=== PATIENT | male | born 1985 | race Two or more races ===

== ENCOUNTER 2024-04-16 16:35 | Inpatient (IN) | payer BC, OTHER ==
[~2024-04-16] VITALS: Ht 195.6 cm; Wt 205.3 kg
[2024-04-16 20:36] VITALS: BP 101/45; PULSE 71; RESP 20; TEMP 98.6; O2SAT 99
[2024-04-16 21:00] VITALS: BP 101/45; PULSE 71; RESP 20; TEMP 98.6; O2SAT 99
[2024-04-16] MEDS ORDERED: hydrALAZINE HCL 20 MG/ML VL IV PRN (21:15)
[2024-04-16] MEDS ORDERED: MORPHINE SULFATE INJ 2 MG/ml SYRG IV PRN ×2 (21:15)
[2024-04-16] MEDS ORDERED: NITROGLYCERIN 0.4 MG SL TAB SL PRN (21:15)
[2024-04-16] MEDS ORDERED: ONDANSETRON HCL 4 MG/2 ML VIAL IV PRN (21:15)
[2024-04-16] MEDS ORDERED: ACETAMINOPHEN 325 MG TAB PO PRN (21:15)
[2024-04-16] MEDS ORDERED: TEMAZEPAM 15 MG CAP PO PRN (21:15)
[2024-04-16] MEDS ORDERED: LISI40TA16 PO (21:24)
[2024-04-16] MEDS ORDERED: AMLO-298 PO (21:24)
[2024-04-16] MEDS ORDERED: TRIAPOW43 PO (21:30)
[2024-04-16 21:42] LABS: Basophils # (auto) 0.1 10 ^3/uL (0-0.2); Basophils % (auto) 1.4 % (0.0-2.0); Eosinophils # (auto) 0.3 10 ^3/uL (0-0.8); Eosinophils % (auto) 4.7 % (0.0-7.0); Hemoglobin 13.4 g/dL (13.5-17.5); Lymphocytes # (auto) 2.7 10 ^3/uL (0.4-5.4); Lymphocytes % (auto) 42.3 % (10.0-50.0); Mean Corpuscular Hemoglobin 30.1 pg (28.0-32.0); Mean Corpuscular Hgb Conc. 33.6 g/dL (32.0-36.0); Mean Corpuscular Volume 89.5 fL (80.0-100.0); Monocytes # (auto) 0.6 10 ^3/uL (0-1.3); Monocytes % (auto) 9.3 % (0.0-12.0); Neutrophils # (auto) 2.7 10 ^3/uL (1.6-8.6); Neutrophils % (auto) 42.3 % (37.0-80.0); Nucleated Red Blood Cells % 0.1 %; Platelet Count (auto) 282 10^3/uL (140-450); Red Blood Cells 4.47 10^6/uL (4.5-5.90); Red Cell Distribution Width 13.7 % (11.8-14.3); White Blood Cell 6.4 10^3/uL (4.4-10.8)
[2024-04-16] MEDS: SODIUM CHLOR 0.9% PF (SALINE LOCK) 10ML VIAL/SYR IV SCH (22:00)
[2024-04-16] MEDS: ATORVASTATIN 20 MG TAB PO SCH (22:00)
[2024-04-16 22:11] LABS: Albumin 4.3 g/dL (3.2-4.8); Alkaline Phosphatase 83 U/L (46-116); Anion Gap 6 (5-15); Aspartate Aminotransferase 23 U/L (13-40); Blood Alcohol 4.1 mg/dL (<10); Blood Urea Nitrogen 12 mg/dL (9-23); Calcium 9.9 mg/dL (8.7-10.4); Chloride 104 mmol/L (98-107); Glucose 92 mg/dL (74-106); Magnesium 2.4 mg/dL (1.6-2.6); Potassium 3.9 mmol/L (3.5-5.1); Sodium 141 mmol/L (136-145)
[2024-04-16 22:12] LABS: Alanine Aminotransferase 50 U/L (7-40); Bilirubin, Total 0.3 mg/dL (0.2-1.0); Carbon Dioxide 31 mmol/L (20-31); Total Protein 7.6 g/dL (5.7-8.2)
--- NOTE | 2024-04-16 22:36 | DVHHPRES ---
History of Present Illness Resident Creating Document: FAUSTINO IVAN RESIDENT History of Present Illness Patient is 38 years old male with a history of atrial fibrillation, status post cardiac ablation 10 years before, hypertension, morbid obesity was transferred from [facility]. Patient went to [facility] yesterday due to rapid heartbeat. Patient reported feeling palpitation but denied any chest pain, shortness of breath, vertigo, fever, dysuria, constipation, acute joint pain or swelling. Patient was found to have atrial fibrillation and rapid ventricular rate. Patient was also found to have elevated blood pressure. Patient was treated with Cardizem for atrial fibrillation and reverted to sinus rhythm as per [facility] documentation. . Lab reviewed from [facility] negative for troponin I, WBC 6.0, hemoglobin 13.5, sodium 139, potassium 3.3, serum creatinine 1.13, D-dimer with a normal limit, troponin with a normal limit. Chest x-ray negative for acute cardiopulmonary disease. Per documentation [facility] patient was treated with Cardizem. Today today on admission at [facility] patient reported feeling well, denied any palpitation, chest pain or shortness of breath. Vitals stable. Lab workup at [facility] revealed HGB A1c 6.1, mildly elevated ALT, negative for troponin I, BNP within normal limit, TSH 1.99, serum creatinine 1.09, sodium 141, potassium 3.9. Serum alcohol 4.1. Past Medical History Hypertension, atrial fibrillation status post cardiac ablation 10 years before, morbid obesity Past Surgical History Cardiac ablation for atrial fibrillation 10 years before Past Social History Patient reported being nonsmoker, alcoholic, denies using any drugs Review of Systems Review of Systems Allergy- NKDA Patient was seen today at the bedside. Cardiovascular- deny acute chest pain or shortness of breath or cough or palpitation Respiratory- denies cough or short of breath or wheezing Gastrointestinal- denies any rectal bleeding, nausea or vomiting Musculoskeletal-denies acute joint swelling or tenderness or redness Neurological- denies acute dysarthria, dysphagia, change in vision Psychiatry- denies depression or SI or HI Skin- denies acute rash or purpura Allergies: Coded Allergies: NO KNOWN ALLERGIES (Unverified , 04/16/24) Medications Current Medications Medications Dose Ordered Sig/Bernard Route Start Time Stop Time Status Last Admin Dose Admin Sodium Chloride 10 ml Q8HR IV 04/16/24 22:00 Temazepam 15 mg QHSP PRN PO 12/13/24 21:15 Ondansetron HCl 4 mg Q4HP PRN IV 04/16/24 21:15 Acetaminophen 650 mg Q6HP PRN PO 04/16/24 21:15 Morphine Sulfate 2 mg Q4HPRN PRN IV 04/16/24 21:15 Nitroglycerin 0.4 mg Q5MINP PRN SL 04/16/24 21:15 Morphine Sulfate 2 mg Q30M PRN IV 04/16/24 21:15 Aspirin 81 mg DAILY PO 04/17/24 10:00 Atorvastatin Calcium 40 mg HS PO 04/16/24 22:00 Diltiazem HCl 180 mg DAILY PO 04/17/24 10:00 Lisinopril 40 mg DAILY PO 04/17/24 10:00 Enoxaparin Sodium 40 mg DAILY SC 04/17/24 10:00 Hydralazine HCl 10 mg Q6HP PRN IV 04/16/24 21:15 Exam Vital Signs Vital Signs Date Time Temp Pulse Resp B/P (MAP) Pulse Ox O2 Delivery O2 Flow Rate FiO2 04/16/24 20:36 71 20 99 Room Air* 0 21 04/16/24 20:36 98.6 101/45 (63) 98.6 Exam General examination- awake, alert, oriented, conversant, morbid obese HEENT- PEERLA, no acute nasal discharge Cardiovascular- S1-S2 audible, rate and rhythm regular, no murmur Respiratory- CTAB, no wheeze or rhonchi Gastrointestinal-nontender, bowel sound+. Nondistended Musculoskeletal-no acute joint swelling or tenderness or redness# Lower extremity- no leg edema Neurological- cranial nerves intact, no acute dysarthria or dysphagia Psychiatry- denies depression or SI or HI Skin- no acute rash or purpura Labs/Xrays Labs Test 04/16/24 22:22 04/16/24 21:20 Range/Units White Blood Count 6.4 4.4-10.8 10^3/uL Red Blood Count 4.47 L 4.5-5.90 10^6/uL Hemoglobin 13.4 L 13.5-17.5 g/dL Hematocrit 40.0 L 41.0-53.0 % Mean Corpuscular Volume 89.5 80.0-100.0 fL Mean Corpuscular Hemoglobin 30.1 28.0-32.0 pg Mean Corpuscular Hemoglobin Concent 33.6 32.0-36.0 g/dL Red Cell Distribution Width 13.7 11.8-14.3 % Platelet Count 282 140-450 10^3/uL Mean Platelet Volume 9.1 6.9-10.8 fL Neutrophils (%) (Auto) 42.3 37.0-80.0 % Lymphocytes (%) (Auto) 42.3 10.0-50.0 % Monocytes (%) (Auto) 9.3 0.0-12.0 % Eosinophils (%) (Auto) 4.7 0.0-7.0 % Basophils (%) (Auto) 1.4 0.0-2.0 % Neutrophils # (Auto) 2.7 1.6-8.6 10 ^3/uL Lymphocytes # (Auto) 2.7 0.4-5.4 10 ^3/uL Monocytes # (Auto) 0.6 0-1.3 10 ^3/uL Eosinophils # (Auto) 0.3 0-0.8 10 ^3/uL Basophils # (Auto) 0.1 0-0.2 10 ^3/uL Nucleated Red Blood Cells 0.1 % Sodium Level 141 136-145 mmol/L Potassium Level 3.9 3.5-5.1 mmol/L Chloride Level 104 98-107 mmol/L Carbon Dioxide Level 31 20-31 mmol/L Anion Gap 6 5-15 Blood Urea Nitrogen 12 9-23 mg/dL Creatinine 1.09 0.700-1.30 mg/dL Glomerular Filtration Rate Calc 89 >90 mL/min BUN/Creatinine Ratio 11.0 10.0-20.0 Serum Glucose 92 74-106 mg/dL Hemoglobin A1c 6.1 H <5.7 % A1C Calcium Level 9.9 8.7-10.4 mg/dL Magnesium Level 2.4 1.6-2.6 mg/dL Total Bilirubin 0.3 0.2-1.0 mg/dL Aspartate Amino Transferase (AST) 23 13-40 U/L Alanine Aminotransferase (ALT) 50 H 7-40 U/L Alkaline Phosphatase 83 46-116 U/L Total Protein 7.6 5.7-8.2 g/dL Albumin 4.3 3.2-4.8 g/dL Thyroid Stimulating Hormone (TSH) 1.99 0.55-4.78 uIU/mL Plasma/Serum Blood Alcohol 4.1 <10 mg/dL Assessment/Plan Assessment/Plan #Atrial fibrillation with rapid ventricular rate- now sinus Rhythm -status post cardiac ablation 10 years before -continue Cardizem 180 mg p.o. daily # uncontrolled hypertension, now improved -Cardizem 180 mg p.o. daily -continue lisinopril 40 mg p.o. daily -monitor BP # prediabetes, HGB A1c 6.1 -continue with nonmedical treatment # morbid obesity, BMI 53.7 -patient was counseled about weight reduction, healthy diet, physical activity Goals of care/advance care planning; FULL CODE; discussed with the patient >15 minutes PUD prophylaxis: Famotidine DVT prophylaxis: Lovenox PCP - Dr. Novak Plan discussed with Dr. Powell, nursing staff, patient Total time spent on patient evaluation, chart review, assessment and plan, discussion discussion >30 minutes Plan discussed with: Patient Plan discussed with: Patient, Other My Orders Orders - FAUSTINO IVAN RESIDENT Procedure Category Date Status Time Admit ADMIT 04/16/24 Transmitted 21:02 Code Status CODE 04/16/24 Transmitted 21:02 Sodium Chloride Lock PHA 04/16/24 In Process (Saline Lock Ns) 22:00 Temazepam (Restoril) PHA 04/16/24 In Process 21:15 Ondansetron Hcl PHA 04/16/24 In Process (Zofran) 21:15 Complete Blood Count LAB 04/17/24 Verified 04:00 Comprehensive LAB 04/17/24 Verified Metabolic Panel 04:00 Cardiac DIET 04/17/24 Transmitted Diet-2gna,Lofat,Lochol Breakfast Echo 2d Mode Cardiac US 04/16/24 Logged DOP 21:02 Acetaminophen Tablet PHA 04/16/24 In Process (Tylenol Tablet) 21:15 Morphine Sulfate PHA 04/16/24 In Process Injection 21:15 Nitroglycerin PHA 04/16/24 In Process Sublingual (Ntrostat 21:15 Morphine Sulfate PHA 04/16/24 In Process Injection 21:15 Oxygen By Nasal RT 04/16/24 Transmitted Cannula 21:02 Stat Ekg For Chest MARI 04/16/24 In Process Pain 21:02 Notify Of Changes MARI 04/16/24 In Process From Base 21:02 Agency Operator For MARI 04/16/24 In Process 24 Hours 21:02 Emergency Dysrhythmia MARI 04/16/24 In Process Protocol 21:02 Rhythm Strips Once MARI 04/16/24 In Process Every Shift 21:02 Troponin-I Hs LAB 04/16/24 In Process 22:02 Troponin-I Hs LAB 04/17/24 Verified 00:02 Electrocardigram EKG 04/16/24 Logged 21:02 Electrocardigram EKG 04/16/24 Logged 22:02 Aspirin Tablet PHA 04/17/24 In Process 10:00 Atorvastatin (Lipitor) PHA 04/16/24 In Process 22:00 Drug Screen LAB 04/16/24 Logged 21:05 Diltiazem Er Capsule PHA 04/17/24 In Process (Cardizem La Capsul 10:00 Lisinopril Tablet PHA 04/17/24 In Process (Zestril Tablet) 10:00 Enoxaparin Sodium PHA 04/17/24 In Process (Lovenox) 10:00 Hydralazine Injection PHA 04/16/24 In Process (Apresoline Inject 21:15 Date of Service: Apr 16, 2024 Billing Provider: SARAHY POWELL MD Common Visit Codes: [id number] INP/OBS CARE (HIGH) FAUSTINO IVAN RESIDENT Apr 16, 2024 22:36 SARAHY POWELL MD Apr 18, 2024 18:48
[2024-04-17 01:00] VITALS: BP 108/52; PULSE 68; RESP 20; TEMP 98.8; O2SAT 98
[2024-04-17 05:00] VITALS: BP 106/56; PULSE 70; RESP 18; TEMP 98.6; O2SAT 99
[2024-04-17 06:11] LABS: Basophils # (auto) 0.1 10 ^3/uL (0-0.2); Basophils % (auto) 0.9 % (0.0-2.0); Eosinophils # (auto) 0.3 10 ^3/uL (0-0.8); Eosinophils % (auto) 5.7 % (0.0-7.0); Hematocrit 40.3 % (41.0-53.0); Hemoglobin 13.5 g/dL (13.5-17.5); Lymphocytes # (auto) 2.1 10 ^3/uL (0.4-5.4); Lymphocytes % (auto) 37.8 % (10.0-50.0); Mean Corpuscular Hemoglobin 30.1 pg (28.0-32.0); Mean Corpuscular Hgb Conc. 33.4 g/dL (32.0-36.0); Monocytes # (auto) 0.5 10 ^3/uL (0-1.3); Neutrophils # (auto) 2.5 10 ^3/uL (1.6-8.6); Neutrophils % (auto) 45.6 % (37.0-80.0); Nucleated Red Blood Cells % 0.1 %; Platelet Count (auto) 191 10^3/uL (140-450); Red Blood Cells 4.48 10^6/uL (4.5-5.90); White Blood Cell 5.5 10^3/uL (4.4-10.8)
[2024-04-17 06:32] LABS: Albumin 4.2 g/dL (3.2-4.8); Alkaline Phosphatase 82 U/L (46-116); Anion Gap 9 (5-15); Aspartate Aminotransferase 20 U/L (13-40); BUN/Creatinine Ratio 10.1 (10.0-20.0); Blood Urea Nitrogen 11 mg/dL (9-23); Calcium 9.9 mg/dL (8.7-10.4); Carbon Dioxide 30 mmol/L (20-31); Chloride 103 mmol/L (98-107); Magnesium 2.3 mg/dL (1.6-2.6); Potassium 4.1 mmol/L (3.5-5.1); Sodium 142 mmol/L (136-145); Triglycerides 120 mg/dL (< 150)
[2024-04-17 06:33] LABS: Bilirubin, Total 0.4 mg/dL (0.2-1.0); HDL Cholesterol 46 mg/dL (40-59); Total Protein 7.3 g/dL (5.7-8.2)
[2024-04-17 06:36] LABS: Alanine Aminotransferase 48 U/L (7-40); Cholesterol 254 mg/dL (< 200); Glucose 115 mg/dL (74-106); LDL Cholesterol 181 mg/dL (< 100)
[2024-04-17 08:00] VITALS: PULSE 69
--- NOTE | 2024-04-17 08:04 | DVH ---
EXAM: XR Chest, 1 View CLINICAL INDICATION: Rule out PNA/PE TECHNIQUE: Frontal view of the chest. COMPARISON: None FINDINGS: LUNGS AND PLEURAL SPACES: Unremarkable. No consolidation. No pneumothorax. HEART: Unremarkable. No cardiomegaly. MEDIASTINUM: Unremarkable. Normal mediastinal contour. BONES/JOINTS: Unremarkable. No acute fracture. OTHER FINDINGS: . . . IMPRESSION: No acute cardiopulmonary process. HS:Y
[2024-04-17 09:20] VITALS: BP 153/84; PULSE 73; RESP 17; TEMP 98; O2SAT 100
[2024-04-17] MEDS ORDERED: ATOR20TA50 PO (09:56)
[2024-04-17] MEDS ORDERED: DILT-102 PO (09:56)
[2024-04-17] MEDS: ENOXAPARIN SOD 40 MG/0.4 ML SYRINGE SC SCH (10:00)
[2024-04-17] MEDS: dilTIAZem HCL 180MG ER CAP PO SCH (10:19)
[2024-04-17] MEDS: ASPirin 81 mg TAB PO SCH (10:19)
[2024-04-17] MEDS: LISINOPRIL 20 MG TAB PO SCH (10:19)
[2024-04-17] MEDS: FAMOTIDINE 20 MG TAB PO SCH (10:19)
--- NOTE | 2024-04-17 12:29 | DVHINCON2 ---
CHIO FRITZ AGACNP 04/17/24 1229: Date Seen: Apr 17, 2024 Referring Physician Atrial fibrillation with epsidoe of RVR Reason for Consultation Babu History of Present Illness 38-year-old male with PMH for atrial fibrillation s/p ablation 10 years ago on Cardizem, not on anticoagulation therapy presented to [facility] with palpitations. Upon evaluation patient noted to be in AFib with RVR for which he converted fairly rapidly with IV Cardizem. Patient notes he was on Cardizem prior though ran out and was not taking consistently. Patient recently followed back up with primary care and was restarted on though not the right dose per patient. Patient was transferred to [facility], remains in sinus rhythm. Past Medical History Atrial fibrillation Past Surgical History Ablation 10 years ago Family History: Hypertension G8 MOTHER Malignant melanoma G8 FATHER Social History Denies illicit drug use, occasionally vapes and uses alcohol on the weekends socially. Allergies: Coded Allergies: NO KNOWN ALLERGIES (Unverified , 04/16/24) Home Meds Active Scripts Diltiazem HCl (Diltiazem Hydrochloride E) 180 Mg Cap, 180 MG PO DAILY for 30 Days, #30 CAP Prov:COREY SANCHEZ RESIDENT 04/17/24 Atorvastatin Calcium (ATORVASTATIN CALCIUM) 20 Mg Tab, 40 MG PO HS for 30 Days, #60 TAB Prov:COREY SANCHEZ RESIDENT 04/17/24 Reported Medications Triamterene (Triamterene) Pow, 37.5 MG PO, POW 04/16/24 Lisinopril (Lisinopril) 40 Mg Tab, 40 MG PO DAILY for 30 Days, MG 04/16/24 Discontinued Reported Medications Amlodipine Besylate-Valsartan (Amlodipine Besylate/Valsa 10-160 mg) 1 Tab Tab, 1 TAB PO, TAB 04/16/24 Current Medications Current Medications Medications (Trade) Dose Ordered Sig/Bernard Route PRN Reason Start Time Stop Time Status Last Admin Sodium Chloride (Saline Lock Ns) 10 ml Q8HR IV 04/16/24 22:00 04/17/24 06:00 Temazepam (Restoril) 15 mg QHSP PRN PO FOR INSOMNIA 04/16/24 21:15 Ondansetron HCl (Zofran) 4 mg Q4HP PRN IV NAUSEA / VOMITING 04/16/24 21:15 Acetaminophen (Tylenol Tablet) 650 mg Q6HP PRN PO PAIN SCALE 1-3 OR TEMP>100.4 04/16/24 21:15 Morphine Sulfate 2 mg Q4HPRN PRN IV SEVERE PAIN (7-10 PAIN SCALE) 04/16/24 21:15 Nitroglycerin (Ntrostat Sublingual) 0.4 mg Q5MINP PRN SL FOR CHEST PAIN 04/16/24 21:15 Morphine Sulfate 2 mg Q30M PRN IV FOR CHEST PAIN 04/16/24 21:15 Aspirin 81 mg DAILY PO 04/17/24 10:00 04/17/24 10:19 Atorvastatin Calcium (Lipitor) 40 mg HS PO 04/16/24 22:00 04/16/24 22:00 Diltiazem HCl (Cardizem LA Capsule) 180 mg DAILY PO 04/17/24 10:00 04/17/24 10:19 Lisinopril (Zestril Tablet) 40 mg DAILY PO 04/17/24 10:00 04/17/24 10:19 Enoxaparin Sodium (Lovenox) 40 mg DAILY SC 04/17/24 10:00 Hydralazine HCl (Apresoline Injection) 10 mg Q6HP PRN IV SBP>150 04/16/24 21:15 Famotidine (Pepcid Tablet) 20 mg Q12HR PO 04/17/24 10:00 04/17/24 10:19 Review of Systems Constitutional: No: Fever, Chills, Sweats, Weakness, Malaise, Other Eyes: No: Pain, Vision change, Conjunctivae inflammation, Eyelid inflammation, Other, Redness ENT: No: Ear pain, Ear discharge, Nose pain, Nose discharge, Nose congestion, Mouth pain, Mouth swelling, Throat pain, Throat swelling, Other Respiratory: No: Cough, Dry, Shortness of breath, SOB with exertion, Wheezing, Hemoptysis, Pleuritic Pain, Sputum, Wheezing, Other Cardiovascular: ; No: Chest Pain Palpitations, Orthopnea, Paroxysmal Noc. Dyspnea, Edema, Lt Headedness, Other Gastrointestinal: No: Nausea, Vomiting, Abdominal Pain, Diarrhea, Constipation, Melena, Hematochezia, Other Genitourinary: No Dysuria, No Frequency, No Incontinence, No Hematuria, No Retention, No Other Musculoskeletal: neck pain; No: other, shoulder pain, arm pain, back pain, hand pain, leg pain, foot pain Skin: No: Rash, Lesions, Jaundice, Bruising, Other Neurological: Other (Dizziness, headache.); No: Weakness, Numbness, Inc oordination, Change in speech, Confusion, Seizures Vital Signs Vital Signs Date Time Temp Pulse Resp B/P (MAP) Pulse Ox O2 Delivery O2 Flow Rate FiO2 04/17/24 10:19 153/84 04/17/24 10:19 73 04/17/24 09:20 98.0 17 100 98.0 04/17/24 08:00 Room Air* 0 21 Physical Exam General appearance: Patient is well-developed, well-nourished, in no acute distress. HEENT: Exam shows: Normocephalic, atraumatic, PERRLA, EOMI Neck: Supple, no bruits Chest: Equal chest excursion bilaterally. Breath sounds normal-no rales or wheezes. Heart: Rhythm: Regular rate; no murmur or gallop Abdomen: Exam shows: Soft, nontender, nondistended Musculoskeletal: No clubbing, no cyanosis, no lower extremity edema Dermatology: Skin warm, moist. Neurological: Exam shows: Alert and oriented x4, normal speech Available prior records, labs, EKG, rhythm strips reviewed and interpreted Labs/Diagnostic Data Labs Test 04/17/24 04:30 04/16/24 21:20 Range/Units White Blood Count 5.5 4.4-10.8 10^3/uL Red Blood Count 4.48 L 4.5-5.90 10^6/uL Hemoglobin 13.5 13.5-17.5 g/dL Hematocrit 40.3 L 41.0-53.0 % Mean Corpuscular Volume 90.0 80.0-100.0 fL Mean Corpuscular Hemoglobin 30.1 28.0-32.0 pg Mean Corpuscular Hemoglobin Concent 33.4 32.0-36.0 g/dL Red Cell Distribution Width 14.0 11.8-14.3 % Platelet Count 191 140-450 10^3/uL Mean Platelet Volume 9.4 6.9-10.8 fL Neutrophils (%) (Auto) 45.6 37.0-80.0 % Lymphocytes (%) (Auto) 37.8 10.0-50.0 % Monocytes (%) (Auto) 10.0 0.0-12.0 % Eosinophils (%) (Auto) 5.7 0.0-7.0 % Basophils (%) (Auto) 0.9 0.0-2.0 % Neutrophils # (Auto) 2.5 1.6-8.6 10 ^3/uL Lymphocytes # (Auto) 2.1 0.4-5.4 10 ^3/uL Monocytes # (Auto) 0.5 0-1.3 10 ^3/uL Eosinophils # (Auto) 0.3 0-0.8 10 ^3/uL Basophils # (Auto) 0.1 0-0.2 10 ^3/uL Nucleated Red Blood Cells 0.1 % Sodium Level 142 136-145 mmol/L Potassium Level 4.1 3.5-5.1 mmol/L Chloride Level 103 98-107 mmol/L Carbon Dioxide Level 30 20-31 mmol/L Anion Gap 9 5-15 Blood Urea Nitrogen 11 9-23 mg/dL Creatinine 1.09 0.700-1.30 mg/dL Glomerular Filtration Rate Calc 89 >90 mL/min BUN/Creatinine Ratio 10.1 10.0-20.0 Serum Glucose 115 H 74-106 mg/dL Calcium Level 9.9 8.7-10.4 mg/dL Magnesium Level 2.3 1.6-2.6 mg/dL Total Bilirubin 0.4 0.2-1.0 mg/dL Aspartate Amino Transferase (AST) 20 13-40 U/L Alanine Aminotransferase (ALT) 48 H 7-40 U/L Alkaline Phosphatase 82 46-116 U/L Troponin I High Sensitivity 6 </=54 ng/L Total Protein 7.3 5.7-8.2 g/dL Albumin 4.2 3.2-4.8 g/dL Triglycerides Level 120 < 150 mg/dL Cholesterol Level 254 H < 200 mg/dL LDL Cholesterol 181 H < 100 mg/dL HDL Cholesterol 46 40-59 mg/dL Hemoglobin A1c 6.1 H <5.7 % A1C B-Type Natriuretic Peptide 41.64 0-100 pg/mL Thyroid Stimulating Hormone (TSH) 1.99 0.55-4.78 uIU/mL Plasma/Serum Blood Alcohol 4.1 <10 mg/dL Assessment HTN Atrial fibrillation with RVR Morbid obesity Plan/Recommendation * Currently sinus rhythm. Continue Cardizem 180 mg p.o. daily. Recommend Eliquis 5 mg p.o. twice daily upon discharge x1 month. * Continue lisinopril 40 mg p.o. daily * Follow-up echo * Outpatient follow-up for event monitoring. Case Discussed with Dr Rodrigues. Continue recs as above. Follow up echo. If echo normal, no further cardiac work-up indicated at this time unstable for discharge from cardiology standpoint. Follow up outpatient for event monitoring. Thank you for allowing us to participate in this patient's care. Will sign off. Critical care, time spent: 36 minutes This medical document was created using an electronic medical record system with voice recognition software and computerized dictation system. Although this document has been carefully reviewed, there might still be some phonetic and typographical errors. Occasional wrong-word or ``sound-alike substitutions may have occurred due to the inherent limitations of voice recognition software. These areas are purely typographical due to imperfections of the software programs and do not reflect any compromise in the patient's medical care. Please read the chart carefully and recognize, using context, where these substitutions have occurred. Plan discussed with: Patient Date of Service: Apr 17, 2024 Billing Provider: CHIO FRITZ [facility] Cardiology Common Codes: [id number] INP/OBS CARE (High), [id number] CARE 30-74 MIN LEONORA RODRIGUES MD 04/17/24 1412: Family History: Hypertension G8 MOTHER Malignant melanoma G8 FATHER Allergies: Coded Allergies: NO KNOWN ALLERGIES (Unverified , 04/16/24) Home Meds Active Scripts Diltiazem HCl (Diltiazem Hydrochloride E) 180 Mg Cap, 180 MG PO DAILY for 30 Days, #30 CAP Prov:COREY SANCHEZ RESIDENT 04/17/24 Atorvastatin Calcium (ATORVASTATIN CALCIUM) 20 Mg Tab, 40 MG PO HS for 30 Days, #60 TAB Prov:COREY SANCHEZ RESIDENT 04/17/24 Reported Medications Triamterene (Triamterene) Pow, 37.5 MG PO, POW 04/16/24 Lisinopril (Lisinopril) 40 Mg Tab, 40 MG PO DAILY for 30 Days, MG 04/16/24 Discontinued Reported Medications Amlodipine Besylate-Valsartan (Amlodipine Besylate/Valsa 10-160 mg) 1 Tab Tab, 1 TAB PO, TAB 04/16/24 Plan/Recommendation pt seen at [facility] [place] to [facility] for HMO afib to SR now echo and outpt fu Plan discussed with: Patient CHIO FRITZ Krystyna GUNN Apr 17, 2024 12:29 LEONORA RODRIGUES MD Apr 17, 2024 14:12
--- NOTE | 2024-04-17 15:55 | DVHDSRES ---
Discharge Summary Date of Admission Resident Creating Document: COREY SANCHEZ RESIDENT Apr 16, 2024 at 19:58 Date of Discharge: Apr 17, 2024 Admitting Diagnosis Atrial fibrillation with rapid ventricular rate- now sinus Rhythm Labs/Diagnostic Data: Laboratory Results Test 04/17/24 04:30 04/16/24 21:20 White Blood Count 5.5 10^3/uL (4.4-10.8) Red Blood Count 4.48 10^6/uL (4.5-5.90) Hemoglobin 13.5 g/dL (13.5-17.5) Hematocrit 40.3 % (41.0-53.0) Mean Corpuscular Volume 90.0 fL (80.0-100.0) Mean Corpuscular Hemoglobin 30.1 pg (28.0-32.0) Mean Corpuscular Hemoglobin Concent 33.4 g/dL (32.0-36.0) Red Cell Distribution Width 14.0 % (11.8-14.3) Platelet Count 191 10^3/uL (140-450) Mean Platelet Volume 9.4 fL (6.9-10.8) Neutrophils (%) (Auto) 45.6 % (37.0-80.0) Lymphocytes (%) (Auto) 37.8 % (10.0-50.0) Monocytes (%) (Auto) 10.0 % (0.0-12.0) Eosinophils (%) (Auto) 5.7 % (0.0-7.0) Basophils (%) (Auto) 0.9 % (0.0-2.0) Neutrophils # (Auto) 2.5 10 ^3/uL (1.6-8.6) Lymphocytes # (Auto) 2.1 10 ^3/uL (0.4-5.4) Monocytes # (Auto) 0.5 10 ^3/uL (0-1.3) Eosinophils # (Auto) 0.3 10 ^3/uL (0-0.8) Basophils # (Auto) 0.1 10 ^3/uL (0-0.2) Nucleated Red Blood Cells 0.1 % Sodium Level 142 mmol/L (136-145) Potassium Level 4.1 mmol/L (3.5-5.1) Chloride Level 103 mmol/L (98-107) Carbon Dioxide Level 30 mmol/L (20-31) Anion Gap 9 (5-15) Blood Urea Nitrogen 11 mg/dL (9-23) Creatinine 1.09 mg/dL (0.700-1.30) Glomerular Filtration Rate Calc 89 mL/min (>90) BUN/Creatinine Ratio 10.1 (10.0-20.0) Serum Glucose 115 mg/dL (74-106) Calcium Level 9.9 mg/dL (8.7-10.4) Magnesium Level 2.3 mg/dL (1.6-2.6) Total Bilirubin 0.4 mg/dL (0.2-1.0) Aspartate Amino Transferase (AST) 20 U/L (13-40) Alanine Aminotransferase (ALT) 48 U/L (7-40) Alkaline Phosphatase 82 U/L (46-116) Troponin I High Sensitivity 6 ng/L (</=54) Total Protein 7.3 g/dL (5.7-8.2) Albumin 4.2 g/dL (3.2-4.8) Triglycerides Level 120 mg/dL (< 150) Cholesterol Level 254 mg/dL (< 200) LDL Cholesterol 181 mg/dL (< 100) HDL Cholesterol 46 mg/dL (40-59) Hemoglobin A1c 6.1 % A1C (<5.7) B-Type Natriuretic Peptide 41.64 pg/mL (0-100) Thyroid Stimulating Hormone (TSH) 1.99 uIU/mL (0.55-4.78) Plasma/Serum Blood Alcohol 4.1 mg/dL (<10) Other Laboratory Tests 04/17/24 04:30 Brief Hx & Hospital Course: A 38-year-old male with a history of atrial fibrillation status post cardiac ablation 10 years ago, morbid obesity (BMI 53.7), sleep apnea and uncontrolled hypertension, who presented with a rapid ventricular rate in [facility], max HR 150. During his admission there, the patient was stabilized, and his rhythm returned to sinus rhythm on Cardizem . Blood pressure improved with continued use of lisinopril (40 mg daily), and he was counseled on non- pharmacologic measures for his prediabetes (Hgb A1c 6.1) and weight management. Goals of care and advanced directives were discussed, and the patient chose full-code status. At discharge, the patient is in stable condition. He has been advised to follow up with his primary care physician, , for an echocardiogram to evaluate his cardiac function. Referral for possible sleep apnea evaluation and management of morbid obesity was discussed, emphasizing lifestyle changes, including diet and physical activity. No need of anticoagulation due to CHADVSC1, Start statin due to hyperlipidemia. General examination- awake, alert, oriented, conversant, morbid obese HEENT- PEERLA, no acute nasal discharge Cardiovascular- S1-S2 audible, rate and rhythm regular, no murmur Respiratory- CTAB, no wheeze or rhonchi Gastrointestinal-nontender, bowel sound+. Nondistended Musculoskeletal-no acute joint swelling or tenderness or redness# Lower extremity- no leg edema Neurological- cranial nerves intact, no acute dysarthria or dysphagia Psychiatry- denies depression or SI or HI Skin- no acute rash or purpura Case discussed with Dr Peterson Consults/Reason for consult cardiology due to afib with RVR Condition at Discharge: Stable Final Diagnosis/Problems List #Atrial fibrillation with rapid ventricular rate- now sinus Rhythm # uncontrolled hypertension, now improved # prediabetes, HGB A1c 6.1 # morbid obesity, BMI 53.7 # Hyperlipidemia # Sleep apnea Discharge Disposition: Home Discharge Instruct/Medications Diet: Consistent carbohydrate, Cardiac 2g Na,low cholest Activity: Light activity Follow Up/Referral: fu with Dr Lloyd to do ECHO in less than 7 days Medications: see prescription Discharge Statement: "Patient was advised to return to the ER or call 911 if any headaches, dizziness, shortness of breath, chest pain, abdominal pain, bleeding, fevers, or worsening of medical condition. Patient was counseled about treatment plan, medications, possible side effects, patientverbalized understanding. All questions were answered to the best of my ability. This discharge took greater then 30 minutes in planning, reviewing documentation, counseling the patient, and discussing with other team members." ASSESSMENT ASSESSMENT Assessment atrial fibrilation with RVR resolved Date of Service: Apr 17, 2024 Billing Provider: VINNY PETERSON MD Common Visit Codes: 42174-JOV/[id number] DISCH DAY >30min COREY SANCHEZ RESIDENT Apr 17, 2024 15:55 VINNY PETERSON MD Apr 19, 2024 19:57
== END 2024-04-17 12:40 | disposition home or self-care (01) | DRG 309 ==
LOC: TELE-CENTR 19:58
DX: I48.91 Unspecified atrial fibrillation (principal); Z68.43 Body mass index [BMI] 50.0-59.9, adult; I10 Essential (primary) hypertension; E66.01 Morbid (severe) obesity due to excess calories; R73.03 Prediabetes; E78.5 Hyperlipidemia, unspecified; G47.30 Sleep apnea, unspecified; Z82.49 Family history of ischemic heart disease and other diseases of the circulatory system; Z80.8 Family history of malignant neoplasm of other organs or systems; Z79.899 Other long term (current) drug therapy
CPT/HCPCS: 36415; 71045; 80053; 80061; 80320; 83036; 83735; 83880; 84443; 84484; 85025; G0378